=== PATIENT | female | born 1945 | race Caucasian/White ===

== ENCOUNTER 2020-05-21 08:27 | Emergency (ER) | payer MEDICARE, BC ==
[2020-05-21] MEDS ORDERED: Ondansetron 4 MG/2 ML SDV IVPUSH ONE (09:09)
[2020-05-21 09:15] LABS: ANION GAP 11.8 mEq/L (7-13)
[2020-05-21] MEDS ORDERED: Enalaprilat 1.25 MG/ML SDV IVPUSH ONE (09:29)
[2020-05-21] MEDS ORDERED: Sodium Chloride 0.9% 1,000 ML IV SCH (09:30)
--- NOTE | 2020-05-21 09:59 | EDM.PDOC ---
ED HPI GENERAL MEDICAL PROBLEM - General Chief Complaint: Gastrointestinal Problem Stated Complaint: THROWING UP SINCE YESTERDAY Time Seen by Provider: 05/21/20 09:00 Source of Information: Reports: Patient, RN History Limitations: Reports: No Limitations - History of Present Illness INITIAL COMMENTS - FREE TEXT/NARRATIVE: 74 year old female with a past medical history of diabetes and hypertension who presents to the ER with complaints of nausea and vomiting 1 day. Patient reports vomiting began yesterday afternoon after eating a piece of cheese cake. She has not been able to keep anything down afterwards. She was not able to take her medications yesterday night or this morning. She reports vomiting for the first few episodes and dry heaving for the rest. She reports inability to sleep last night due to dry heaving. She denies any recent travel, or eating a lot of home. She denies any fever, chills or sore throat but does admit to upper quadrant abdominal discomfort due to dry heaving. She denies any bloody vomitus. She has not been around anybody sick.She denies any upper respiratory, diarrhea, or urinary symptoms.. Onset: Sudden Onset Date: 05/20/20 Onset Time: 13:00 Duration: Day(s): Location: Reports: Abdomen Quality: Reports: Ache Severity: Moderate Worsens with: Reports: Eating Associated Symptoms: Reports: Nausea/Vomiting Epigastric Pain Score (Numeric/FACES): 6 - Related Data Allergies Allergy/AdvReac Type Severity Reaction Status Date / Time No Known Allergies Allergy Verified 05/21/20 08:36 Past Medical History HEENT History: Reports: Impaired Vision Cardiovascular History: Reports: High Cholesterol, Hypertension Genitourinary History: Reports: Other (See Below) Other Genitourinary History: Pt states that she follows Dr. Loaiza Endocrine/Metabolic History: Reports: Diabetes, Type II - Past Surgical History GI Surgical History: Reports: Appendectomy, Cholecystectomy Social & Family History - Tobacco Use Smoking Status *Q: Never Smoker Second Hand Smoke Exposure: No - Caffeine Use Caffeine Use: Reports: Tea - Recreational Drug Use Recreational Drug Use: No ED ROS GENERAL - Review of Systems Review Of Systems: Comprehensive ROS is negative, except as noted in HPI. ED EXAM, GI/ABD - Physical Exam Exam: See Below Exam Limited By: No Limitations General Appearance: Alert, Mild Distress Eyes: Bilateral: Normal Appearance Ears: Normal External Exam, Normal Canal, Hearing Grossly Normal, Normal TMs Nose: Normal Inspection, Normal Mucosa Throat/Mouth: Normal Inspection, Normal Lips, Normal Oropharynx, No Airway Compromise Head: Atraumatic Neck: Normal Inspection, Supple, Non-Tender Respiratory/Chest: No Respiratory Distress, Lungs Clear, Normal Breath Sounds, No Accessory Muscle Use, Chest Non-Tender Cardiovascular: Normal Peripheral Pulses, Regular Rate, Rhythm, Systolic Murmur GI/Abdominal Exam: Normal Bowel Sounds, Soft, Non-Tender (Female) Exam: Deferred Rectal (Female) Exam: Deferred Back Exam: Normal Inspection Extremities: Normal Inspection, Normal Range of Motion, Non-Tender, No Pedal Edema, Normal Capillary Refill Neurological: Alert, Oriented, Normal Cognition Psychiatric: Normal Affect, Normal Mood Skin Exam: Warm, Intact, Normal Color Lymphatic: No Adenopathy Course - Vital Signs Last Recorded V/S: Last Vital Signs Temp 97.6 F 05/21/20 08:32 Pulse 75 05/21/20 08:32 Resp 18 05/21/20 08:32 BP 187/72 H 05/21/20 09:49 Pulse Ox 96 05/21/20 08:32 - Orders/Labs/Meds Orders: Active Orders 24 hr Category Date Time Status CULTURE URINE [RM] Urgent Lab 05/21/20 08:47 Received Sodium Chloride 0.9% [Normal Saline] 1,000 ml Med 05/21/20 09:30 Active IV ASDIRECTED Medication Orders Sodium Chloride (Normal Saline) 1,000 mls @ 999 mls/hr IV ASDIRECTED KAT Last Admin: 05/21/20 09:29 Dose: 999 mls/hr Documented by: TERE Labs: Laboratory Tests 05/21/20 05/21/20 05/21/20 Range/Units 08:44 08:44 08:47 WBC 10.3 H (5.0-10.0) 10^3/uL RBC 4.53 (4.2-5.4) 10^6/uL Hgb 12.8 (12.0-16.0) g/dL Hct 37.7 (37.0-47.0) % MCV 83.2 (80-100) fL MCH 28.3 (27.0-34.0) pg MCHC 34.0 (33.0-35.0) g/dL Plt Count 275 (150-450) 10^3/uL Neut % (Auto) 82.8 H (42.2-75.2) % Lymph % (Auto) 11.4 L (20.5-50.1) % [place] % (Auto) 5.3 (2-8) % Eos % (Auto) 0.3 L (1.0-3.0) % Baso % (Auto) 0.2 (0.0-1.0) % Sodium 136 (136-145) mmol/L Potassium 3.8 (3.5-5.1) mmol/L Chloride 99 (98-107) mmol/L Carbon Dioxide 29 (21-32) mmol/L Anion Gap 11.8 (7-13) mEq/L BUN 39 H (7-18) mg/dL Creatinine 1.87 H (0.55-1.02) mg/dL Est Cr Clr Drug Dosing 20.87 mL/min Estimated GFR (MDRD) 26 BUN/Creatinine Ratio 20.9 (No establ ref range) Glucose 221 H (74-99) mg/dL Calcium 9.1 (8.5-10.1) mg/dL Total Bilirubin 0.5 (0.2-1.0) mg/dL AST 29 (15-37) U/L ALT 52 (14-59) U/L Alkaline Phosphatase 139 H (46-116) U/L Total Protein 8.2 (6.4-8.2) g/dL Albumin 2.9 L (3.4-5.0) g/dL Globulin 5.3 Albumin/Globulin Ratio 0.55 Urine Color Yellow (YELLOW) Urine Appearance Turbid (CLEAR) Urine pH 5.0 (5.0-9.0) Ur Specific Atkins 1.020 (1.005-1.030) Urine Protein >=300 H (NEGATIVE) Urine Glucose (UA) 250 H (NEGATIVE) Urine Ketones Negative (NEGATIVE) Urine Occult Blood Moderate H (NEGATIVE) Urine Nitrite Negative (NEGATIVE) Urine Bilirubin Negative (NEGATIVE) Urine Urobilinogen 0.2 (0.2-1.0) mg/dL Ur Leukocyte Esterase Trace H (NEGATIVE) Urine RBC 10-20 H /HPF Urine WBC 30-40 H (0-5/HPF) /HPF Ur Epithelial Cells Few (NOT SEEN) /HPF Urine Bacteria Many H (0-FEW/HPF) /HPF Urine Mucus Few H (NOT SEEN) /LPF Meds: Medications Generic Name Dose Route Start Last Admin Trade Name Fretheodore PRN Reason Stop Dose Admin Sodium Chloride 1,000 mls @ 999 mls/hr 05/21/20 09:30 05/21/20 09:29 Normal Saline IV 999 mls/hr ASDIRECTED KAT Administration Discontinued Medications Generic Name Dose Route Start Last Admin Trade Name Jeff PRN Reason Stop Dose Admin Enalaprilat 1.25 mg 05/21/20 09:29 05/21/20 09:49 Vasotec Iv IVPUSH 05/21/20 09:30 1.25 mg ONETIME ONE Administration Ondansetron HCl 4 mg 05/21/20 09:09 05/21/20 09:15 Zofran IVPUSH 05/21/20 09:10 4 mg ONETIME ONE Administration - Re-Assessments/Exams Free Text/Narrative Re-Assessment/Exam: [age] year old female raj presented to the ER with complaints of N/V/dry heaving x one day. She denies any CP, SOB, diaphoresis, palpitations, headaches, dizziness at this time. Her BP is noted to be elevated in the 200 as patient reports she has not taken her BP medications this morning. IV fluids administered with Vasotec and some improvement with BP down into the 160's. Zofran administered with resolution of nausea. Review lab, bedside EKG and urinalysis results with p atient and she was noted to have a mild UTI. RX for Keflex and Zofran send home with patient. Encouraged to push fluids and rest. Follow up with PCP. Departure - Departure Time of Disposition: 10:30 Disposition: Home, Self-Care 01 Condition: Good Clinical Impression: UTI, Urinary tract infectious disease, Vomiting - Discharge Information Instructions: Urinary Tract Infection, Adult, [id number], Nausea and Vo miting, Adult Additional Instructions: Encouraged patient to take medications as prescribed. Continue with home medications Push fluids and rest. Follow up with PCP. Symptoms to return to the ER reviewed with patient. Sepsis Event Note (ED) - Evaluation Sepsis Screening Result: No Definite Risk - Focused Exam Vital Signs: Vital Signs Temp Pulse Resp BP BP Pulse Ox 05/21/20 09:49 187/72 H 05/21/20 08:32 97.6 F 75 18 200/80 H 96 - My Orders Last 24 Hours: My Active Orders 05/21/20 08:47 CULTURE URINE [RM] Urgent 05/21/20 09:30 Sodium Chloride 0.9% [Normal Saline] 1,000 ml IV ASDIRECTED - Assessment/Plan Last 24 Hours: My Active Orders 05/21/20 08:47 CULTURE URINE [RM] Urgent 05/21/20 09:30 Sodium Chloride 0.9% [Normal Saline] 1,000 ml IV ASDIRECTED
== END 2020-05-21 10:44 | disposition home or self-care (01) ==
LOC: DL.ED 08:27
DX: N39.0 Urinary tract infection, site not specified (principal); R11.2 Nausea with vomiting, unspecified; I10 Essential (primary) hypertension; E11.9 Type 2 diabetes mellitus without complications; Z90.49 Acquired absence of other specified parts of digestive tract
CPT/HCPCS: 36415; 80053; 81001; 85025; 87086; 87088; 87186; 96361; 96374; 96375; 99284; J2405; J7030; 99283

== ENCOUNTER 2023-05-02 10:34 | Inpatient (IN) | payer MEDICARE, BC ==
[2023-05-03] MEDS ORDERED: Sennosides/Docusate Sodium 50-8.6 MG Tab PO PRN (08:31)
[2023-05-03] MEDS ORDERED: Acetaminophen/oxyCODONE 325-5 MG Tab PO PRN (08:31)
[2023-05-03] MEDS ORDERED: Polyethylene Glycol 3350 Powder 17 GM Packet PO PRN (08:31)
[2023-05-03] MEDS ORDERED: Sodium Chloride 0.9% 10 ML Syringe FLUSH PRN ×2 (08:31)
[2023-05-03] MEDS ORDERED: Glucagon,Human Recombinant 1 MG Vial IM PRN (08:31)
[2023-05-03] MEDS ORDERED: Acetaminophen 325 MG Tab PO PRN (08:31)
[2023-05-03] MEDS ORDERED: Magnesium Hydroxide 400 MG/5 ML Susp 30 ML Cup PO PRN (08:31)
[2023-05-03] MEDS ORDERED: Albuterol/Ipratropium 3.0-0.5 MG/3 ML Neb Soln NEB PRN (08:31)
[2023-05-03] MEDS ORDERED: Bumetanide 1 MG/4 ML MDV IVPUSH ONE (09:00)
[2023-05-03] MEDS ORDERED: Albumin Human 50 GM in Premix Bag 1 BAG IV ONE (09:00)
[2023-05-03] MEDS ORDERED: Metolazone 2.5 MG Tab PO SCH (09:00)
[2023-05-03] MEDS: Aspirin 81 MG Tab.EC PO SCH (11:12)
[2023-05-03] MEDS: Cholecalciferol (Vitamin D3) 25 MCG Tab PO SCH (11:12)
[2023-05-03] MEDS: Calcitriol 0.25 MCG Cap PO SCH (11:12)
[2023-05-03] MEDS: Insulin Lispro 100 Units/ML 3 ML Vial SUBCUT SCH ×2 (11:38→17:54)
[2023-05-03] MEDS ORDERED: Sodium Chloride 0.9% 1,000 ML IV SCH (20:00)
[2023-05-03] MEDS: Meropenem 500 MG SDV IVPUSH SCH (20:56)
[2023-05-03] MEDS ORDERED: Pravastatin 20 MG Tab PO SCH (21:00)
[2023-05-03] MEDS: Isosorbide Mononitrate 60 MG Tab.ER PO SCH (21:16)
[2023-05-03] MEDS: hydrALAZINE 25 MG Tab PO SCH (21:17)
[2023-05-04] MEDS: hydrALAZINE 25 MG Tab PO SCH ×2 (07:19→08:31)
[2023-05-04] MEDS ORDERED: Ondansetron 4 MG/2 ML SDV IVPUSH PRN (07:37)
[2023-05-04] MEDS ORDERED: Ondansetron 4 MG/2 ML SDV ONE (07:38)
[2023-05-04] MEDS: Insulin Lispro 100 Units/ML 3 ML Vial SUBCUT SCH ×3 (08:00→16:57)
[2023-05-04] MEDS: Calcitriol 0.25 MCG Cap PO SCH (08:50)
[2023-05-04] MEDS: Cholecalciferol (Vitamin D3) 25 MCG Tab PO SCH (08:51)
[2023-05-04] MEDS: Aspirin 81 MG Tab.EC PO SCH (08:52)
[2023-05-04] MEDS: Isosorbide Mononitrate 60 MG Tab.ER PO SCH (08:52)
[2023-05-04 08:55] LABS: A/G RATIO 0.9; ALBUMIN 3.6 g/dL (3.4-5.0); ANION GAP 13.5 mEq/L (7-13); BILIRUBIN TOTAL 0.4 mg/dL (0.2-1.0); BUN/CREATININE RATIO 20.1 (No establ ref range); CALCIUM 8.4 mg/dL (8.5-10.1); CREATININE 3.04 mg/dL (0.55-1.02); EST CRCL DRUG DOSING (CG) 12.26 mL/min; MAGNESIUM 2.5 mg/dL (1.8-2.4); POTASSIUM,K 5.5 mmol/L (3.5-5.1); PROTEIN TOTAL,TP 7.4 g/dL (6.4-8.2)
[2023-05-04] MEDS ORDERED: Insulin Glarg,Human.Rec.Analog 100 Unit/ML SUBCUT SCH (09:00)
[2023-05-04] MEDS ORDERED: Saccharomyces Boulardii (Probiotic) 250 MG Cap PO SCH (09:00)
[2023-05-04] MEDS ORDERED: Metolazone 2.5 MG Tab PO SCH (09:00)
[2023-05-04] MEDS ORDERED: Azithromycin 500 MG in Sodium Chloride 0.9% 250 ML IV SCH (09:00)
[2023-05-04] MEDS ORDERED: cloNIDine 0.1 MG Tab PO ONE (10:00)
[2023-05-04] MEDS: Meropenem 500 MG SDV IVPUSH SCH (10:03)
[2023-05-04] MEDS ORDERED: Sodium Zirconium Cyclosilicate 5 GM Packet PO STA (10:30)
[2023-05-04] MEDS ORDERED: Bumetanide 1 MG/4 ML MDV IVPUSH ONE (16:06)
[2023-05-04 16:42] LABS: ANION GAP 11.1 mEq/L (7-13); CALCIUM 8.3 mg/dL (8.5-10.1); CREATININE 2.95 mg/dL (0.55-1.02); EST CRCL DRUG DOSING (CG) 12.63 mL/min; POTASSIUM,K 5.1 mmol/L (3.5-5.1)
[2023-05-04] MEDS ORDERED: Heparin Sodium 5,000 Units/ML Vial IVPUSH ONE (16:44)
[2023-05-04] MEDS ORDERED: Heparin Sodium/0.45% NaCl 25,000 UNITS/500 ML BAG IV SCH (16:45)
[2023-05-04] MEDS ORDERED: cloNIDine 0.1 MG Tab PO SCH (21:00)
[2023-05-05] MEDS ORDERED: Sodium Zirconium Cyclosilicate 10 GM Packet PO SCH (09:00)
== END 2023-05-04 17:14 | disposition critical access hospital (66) | DRG 637 ==
LOC: DL.MS 05-03 08:48
PROVIDERS: ADMIT Internal Medicine; ATTEND Internal Medicine
PROC: 5A09357 Assistance with Respiratory Ventilation, Less than 24 Consecutive Hours, Continuous Positive Airway Pressure (ICD-10-PCS; principal; 2023-05-03)
DX: E11.649 Type 2 diabetes mellitus with hypoglycemia without coma (principal); I21.4 Non-ST elevation (NSTEMI) myocardial infarction; N39.0 Urinary tract infection, site not specified; N17.9 Acute kidney failure, unspecified; N18.4 Chronic kidney disease, stage 4 (severe); I12.9 Hypertensive chronic kidney disease with stage 1 through stage 4 chronic kidney disease, or unspecified chronic kidney disease; E11.22 Type 2 diabetes mellitus with diabetic chronic kidney disease; E78.5 Hyperlipidemia, unspecified; B96.89 Other specified bacterial agents as the cause of diseases classified elsewhere; E66.9 Obesity, unspecified; G47.33 Obstructive sleep apnea (adult) (pediatric); E55.9 Vitamin D deficiency, unspecified; D50.9 Iron deficiency anemia, unspecified; E87.5 Hyperkalemia; D63.1 Anemia in chronic kidney disease; T38.3X5A Adverse effect of insulin and oral hypoglycemic [antidiabetic] drugs, initial encounter; R09.02 Hypoxemia; Z79.4 Long term (current) use of insulin; Z98.890 Other specified postprocedural states; Z98.49 Cataract extraction status, unspecified eye; Z79.82 Long term (current) use of aspirin; Z79.899 Other long term (current) drug therapy; Z68.39 Body mass index [BMI] 39.0-39.9, adult; Z99.81 Dependence on supplemental oxygen; Z90.49 Acquired absence of other specified parts of digestive tract
CPT/HCPCS: 36415; 71045; 80048; 80053; 82550; 82947; 83735; 84484; 85379; 85730; 93005; 93970; 94010; 94660; 97161-GP; 97165-GO; A9270-GY; J0456; J2185; J2405; J3490; J7030; J7050; P9047

== ENCOUNTER 2023-05-04 17:15 | Inpatient (IN) | payer MEDICARE, BC ==
[2023-05-04] MEDS ORDERED: Heparin Sodium/0.45% NaCl 25,000 UNITS/500 ML BAG IV SCH (17:17)
[2023-05-04] MEDS ORDERED: Heparin Sodium 5,000 Units/ML Vial IVPUSH ONE ×2 (17:17→17:30)
[2023-05-04] MEDS: Heparin Sodium/0.45% NaCl 25,000 UNITS/500 ML BAG IV SCH (17:20)
[2023-05-04] MEDS ORDERED: Sodium Chloride 0.9% 10 ML Syringe FLUSH PRN ×2 (17:30→17:31)
[2023-05-04] MEDS ORDERED: Polyethylene Glycol 3350 Powder 17 GM Packet PO PRN (17:31)
[2023-05-04] MEDS ORDERED: Acetaminophen/oxyCODONE 325-5 MG Tab PO PRN (17:31)
[2023-05-04] MEDS ORDERED: HYDROmorphone 0.5 MG/0.5 ML Syringe IVPUSH PRN (17:31)
[2023-05-04] MEDS ORDERED: Acetaminophen 325 MG Tab PO PRN (17:31)
[2023-05-04] MEDS ORDERED: Sennosides/Docusate Sodium 50-8.6 MG Tab PO PRN (17:31)
[2023-05-04] MEDS ORDERED: Magnesium Hydroxide 400 MG/5 ML Susp 30 ML Cup PO PRN (17:31)
[2023-05-04] MEDS ORDERED: Aspirin 325 MG Tab.EC PO ONE (17:39)
[2023-05-04] MEDS ORDERED: 50% Dextrose in Water 50 ML Syringe IVPUSH PRN (17:43)
[2023-05-04] MEDS ORDERED: Glucagon,Human Recombinant 1 MG Vial IM PRN (17:43)
[2023-05-04] MEDS ORDERED: Aspirin 81 MG Tab.Chew PO ONE (17:44)
[2023-05-04] MEDS: Carvedilol 6.25 MG Tab PO SCH (18:20)
[2023-05-04] MEDS ORDERED: Insulin Glarg,Human.Rec.Analog 100 Unit/ML SUBCUT SCH (21:00)
[2023-05-04] MEDS: Pravastatin 20 MG Tab PO SCH (21:09)
[2023-05-04] MEDS: hydrALAZINE 25 MG Tab PO SCH (21:09)
[2023-05-04] MEDS: Isosorbide Mononitrate 60 MG Tab.ER PO SCH (21:09)
[2023-05-04] MEDS: Insulin Glarg,Human.Rec.Analog 100 Unit/ML SUBCUT SCH (21:10)
[2023-05-04] MEDS: Sodium Chloride 0.9% 10 ML Syringe FLUSH SCH (21:10)
[2023-05-05] MEDS ORDERED: Heparin Sodium 5,000 Units/ML Vial IVPUSH ONE ×2 (00:09→08:03)
[2023-05-05] MEDS: Pantoprazole 40 MG Tab.CR PO SCH ×2 (06:05→16:14)
[2023-05-05 06:23] LABS: BASOPHILS PERCENT AUTO 0.5 % (0.0-1.0); EOSINOPHILS PERCENT AUTO 6.4 % (1.0-3.0); HEMATOCRIT 31.2 % (37.0-47.0); HEMOGLOBIN 9.2 g/dL (12.0-16.0); LYMPHOCYTES PERCENT AUTO 13.9 % (20.5-50.1); MEAN CORPUSCULAR HEMOGLOBIN 28.6 pg (27.0-34.0); MEAN CORPUSCULAR HGB CONC 29.5 g/dL (33.0-35.0); MEAN CORPUSCULAR VOLUME 96.9 fL (80-100); MONOCYTES PERCENT AUTO 10.7 % (2-8); NEUTROPHILS PERCENT AUTO 68.5 % (42.2-75.2); PLATELET COUNT,PLT 146 10^3/uL (150-450); RED BLOOD CELL COUNT 3.22 10^6/uL (4.2-5.4); WHITE BLOOD CELL COUNT,WBC 6.6 10^3/uL (5.0-10.0)
[2023-05-05 06:46] LABS: A/G RATIO 0.89; ALBUMIN 3.1 g/dL (3.4-5.0); ANION GAP 10.2 mEq/L (7-13); BILIRUBIN TOTAL 0.3 mg/dL (0.2-1.0); BUN/CREATININE RATIO 22.4 (No establ ref range); CALCIUM 8.3 mg/dL (8.5-10.1); CREATININE 3.12 mg/dL (0.55-1.02); EST CRCL DRUG DOSING (CG) 12.49 mL/min; MAGNESIUM 2.5 mg/dL (1.8-2.4); POTASSIUM,K 5.2 mmol/L (3.5-5.1); PROTEIN TOTAL,TP 6.6 g/dL (6.4-8.2)
[2023-05-05] MEDS: Aspirin 81 MG Tab.Chew PO SCH (08:17)
[2023-05-05] MEDS: hydrALAZINE 25 MG Tab PO SCH ×2 (08:17→22:10)
[2023-05-05] MEDS: Isosorbide Mononitrate 60 MG Tab.ER PO SCH ×2 (08:17→22:10)
[2023-05-05] MEDS: Calcitriol 0.25 MCG Cap PO SCH (08:18)
[2023-05-05] MEDS: Carvedilol 6.25 MG Tab PO SCH ×2 (08:18→17:04)
[2023-05-05] MEDS: Insulin Glarg,Human.Rec.Analog 100 Unit/ML SUBCUT SCH ×2 (08:18→22:22)
[2023-05-05] MEDS: Insulin Lispro 100 Units/ML 3 ML Vial SUBCUT SCH ×3 (08:24→17:02)
[2023-05-05] MEDS: Sodium Chloride 0.9% 10 ML Syringe FLUSH SCH ×2 (08:32→22:18)
[2023-05-05] MEDS ORDERED: Sodium Polystyrene Sulfonate 15 GM/60 ML Susp 60 ML Bot PO ONE ×2 (10:29→18:00)
[2023-05-05] MEDS ORDERED: Caffeine Citrated (ORAL SOLUTION) 60 MG/3 ML PO ONE (10:30)
[2023-05-05] MEDS ORDERED: Dexamethasone 4 MG/ML SDV IVPUSH ONE (13:05)
[2023-05-05] MEDS: Albuterol/Ipratropium 3.0-0.5 MG/3 ML Neb Soln NEB PRN (13:06)
[2023-05-05] MEDS ORDERED: Famotidine 20 MG/2 ML SDV IVPUSH ONE (13:11)
[2023-05-05] MEDS ORDERED: guaiFENesin/Dextromethorphan 100-10 MG/5 ML Soln 5 ML Cup PO PRN (13:16)
[2023-05-05] MEDS: Piperacillin/Tazobactam 2.25 GM in Sodium Chloride 0.9% 50 ML IV SCH ×2 (14:03→22:15)
[2023-05-05] MEDS: Heparin Sodium/0.45% NaCl 25,000 UNITS/500 ML BAG IV SCH (15:17)
[2023-05-05] MEDS ORDERED: Piperacillin/Tazobactam 3.375 GM in Sodium Chloride 0.9% 100 ML IV SCH (18:00)
[2023-05-05] MEDS: Saccharomyces Boulardii (Probiotic) 250 MG Cap PO SCH (22:10)
[2023-05-05] MEDS: Pravastatin 20 MG Tab PO SCH (22:10)
[2023-05-05] MEDS: guaiFENesin 600 MG Tab.ER PO SCH (22:11)
[2023-05-06] MEDS: Pantoprazole 40 MG Tab.CR PO SCH ×2 (05:30→17:36)
[2023-05-06] MEDS: Piperacillin/Tazobactam 2.25 GM in Sodium Chloride 0.9% 50 ML IV SCH ×3 (05:34→21:12)
[2023-05-06 06:03] LABS: BASOPHILS PERCENT AUTO 0.3 % (0.0-1.0); EOSINOPHILS PERCENT AUTO 0.7 % (1.0-3.0); HEMATOCRIT 30.6 % (37.0-47.0); HEMOGLOBIN 9.1 g/dL (12.0-16.0); LYMPHOCYTES PERCENT AUTO 13.4 % (20.5-50.1); MEAN CORPUSCULAR HEMOGLOBIN 28.2 pg (27.0-34.0); MEAN CORPUSCULAR HGB CONC 29.7 g/dL (33.0-35.0); MEAN CORPUSCULAR VOLUME 94.7 fL (80-100); MONOCYTES PERCENT AUTO 10.7 % (2-8); NEUTROPHILS PERCENT AUTO 74.9 % (42.2-75.2); PLATELET COUNT,PLT 143 10^3/uL (150-450); RED BLOOD CELL COUNT 3.23 10^6/uL (4.2-5.4)
[2023-05-06 06:23] LABS: ALBUMIN 3.2 g/dL (3.4-5.0); ANION GAP 9.4 mEq/L (7-13); BILIRUBIN TOTAL 0.3 mg/dL (0.2-1.0); BUN/CREATININE RATIO 23.7 (No establ ref range); CALCIUM 8.2 mg/dL (8.5-10.1); CREATININE 2.95 mg/dL (0.55-1.02); EST CRCL DRUG DOSING (CG) 13.21 mL/min; MAGNESIUM 2.5 mg/dL (1.8-2.4); POTASSIUM,K 4.4 mmol/L (3.5-5.1); PROTEIN TOTAL,TP 6.8 g/dL (6.4-8.2)
[2023-05-06 06:26] LABS: A/G RATIO 0.89
[2023-05-06] MEDS: Albuterol/Ipratropium 3.0-0.5 MG/3 ML Neb Soln NEB PRN (07:45)
[2023-05-06] MEDS: Aspirin 81 MG Tab.Chew PO SCH (07:47)
[2023-05-06] MEDS: Insulin Lispro 100 Units/ML 3 ML Vial SUBCUT SCH ×3 (07:48→17:53)
[2023-05-06] MEDS: Carvedilol 6.25 MG Tab PO SCH ×2 (07:48→17:36)
[2023-05-06] MEDS: hydrALAZINE 25 MG Tab PO SCH ×2 (08:02→21:11)
[2023-05-06] MEDS: Isosorbide Mononitrate 60 MG Tab.ER PO SCH ×2 (08:02→21:11)
[2023-05-06] MEDS: Insulin Glarg,Human.Rec.Analog 100 Unit/ML SUBCUT SCH ×2 (08:02→21:12)
[2023-05-06] MEDS: Calcitriol 0.25 MCG Cap PO SCH (08:02)
[2023-05-06] MEDS: Saccharomyces Boulardii (Probiotic) 250 MG Cap PO SCH ×2 (08:02→21:11)
[2023-05-06] MEDS: guaiFENesin 600 MG Tab.ER PO SCH ×2 (08:03→21:11)
[2023-05-06] MEDS: Sodium Chloride 0.9% 10 ML Syringe FLUSH SCH ×2 (08:03→21:13)
[2023-05-06] MEDS: Ondansetron 4 MG/2 ML SDV IVPUSH PRN (08:15)
[2023-05-06] MEDS ORDERED: Witch Hazel Medicated Pads 100/Jar TOP PRN (09:15)
[2023-05-06] MEDS ORDERED: Caffeine Citrated (ORAL SOLUTION) 60 MG/3 ML PO SCH (09:30)
[2023-05-06] MEDS ORDERED: Caffeine Citrated (ORAL SOLUTION) 60 MG/3 ML ONE (10:55)
[2023-05-06] MEDS: Pravastatin 20 MG Tab PO SCH (21:11)
[2023-05-07] MEDS: Pantoprazole 40 MG Tab.CR PO SCH ×2 (05:41→17:07)
[2023-05-07] MEDS: Piperacillin/Tazobactam 2.25 GM in Sodium Chloride 0.9% 50 ML IV SCH ×3 (05:41→21:08)
[2023-05-07 05:42] LABS: BASOPHILS PERCENT AUTO 0.4 % (0.0-1.0); EOSINOPHILS PERCENT AUTO 4.3 % (1.0-3.0); HEMATOCRIT 28.7 % (37.0-47.0); HEMOGLOBIN 8.5 g/dL (12.0-16.0); LYMPHOCYTES PERCENT AUTO 13.2 % (20.5-50.1); MEAN CORPUSCULAR HEMOGLOBIN 28.5 pg (27.0-34.0); MEAN CORPUSCULAR HGB CONC 29.6 g/dL (33.0-35.0); MEAN CORPUSCULAR VOLUME 96.3 fL (80-100); MONOCYTES PERCENT AUTO 8.4 % (2-8); NEUTROPHILS PERCENT AUTO 73.7 % (42.2-75.2); PLATELET COUNT,PLT 138 10^3/uL (150-450); RED BLOOD CELL COUNT 2.98 10^6/uL (4.2-5.4); WHITE BLOOD CELL COUNT,WBC 7.2 10^3/uL (5.0-10.0)
[2023-05-07 06:07] LABS: ANION GAP 11.3 mEq/L (7-13); BILIRUBIN TOTAL 0.3 mg/dL (0.2-1.0); BUN/CREATININE RATIO 21.3 (No establ ref range); CREATININE 3.52 mg/dL (0.55-1.02); EST CRCL DRUG DOSING (CG) 11.07 mL/min; MAGNESIUM 2.5 mg/dL (1.8-2.4); POTASSIUM,K 4.3 mmol/L (3.5-5.1); PROTEIN TOTAL,TP 6.5 g/dL (6.4-8.2)
[2023-05-07 06:08] LABS: A/G RATIO 0.86
[2023-05-07] MEDS ORDERED: Lactated Ringers 1,000 ML IV SCH (07:00)
[2023-05-07] MEDS: hydrALAZINE 25 MG Tab PO SCH ×2 (08:12→21:05)
[2023-05-07] MEDS: Carvedilol 6.25 MG Tab PO SCH ×2 (08:12→17:07)
[2023-05-07] MEDS: Insulin Lispro 100 Units/ML 3 ML Vial SUBCUT SCH ×3 (08:13→17:07)
[2023-05-07] MEDS: Aspirin 81 MG Tab.Chew PO SCH (08:13)
[2023-05-07] MEDS: Calcitriol 0.25 MCG Cap PO SCH (08:13)
[2023-05-07] MEDS: guaiFENesin 600 MG Tab.ER PO SCH ×2 (08:13→21:05)
[2023-05-07] MEDS: Isosorbide Mononitrate 60 MG Tab.ER PO SCH ×2 (08:13→21:05)
[2023-05-07] MEDS: Saccharomyces Boulardii (Probiotic) 250 MG Cap PO SCH ×2 (08:13→21:05)
[2023-05-07] MEDS: Insulin Glarg,Human.Rec.Analog 100 Unit/ML SUBCUT SCH ×2 (08:19→21:29)
[2023-05-07] MEDS: Sodium Chloride 0.9% 10 ML Syringe FLUSH SCH ×2 (08:20→21:28)
[2023-05-07] MEDS ORDERED: Hydrochlorothiazide 25 MG Tab PO SCH ×2 (09:00)
[2023-05-07] MEDS: Pravastatin 20 MG Tab PO SCH (21:05)
[2023-05-08] MEDS: Pantoprazole 40 MG Tab.CR PO SCH ×2 (06:15→15:28)
[2023-05-08] MEDS: Piperacillin/Tazobactam 2.25 GM in Sodium Chloride 0.9% 50 ML IV SCH ×3 (06:19→22:44)
[2023-05-08 06:28] LABS: BASOPHILS PERCENT AUTO 0.3 % (0.0-1.0); EOSINOPHILS PERCENT AUTO 4.6 % (1.0-3.0); HEMATOCRIT 28.3 % (37.0-47.0); HEMOGLOBIN 8.4 g/dL (12.0-16.0); LYMPHOCYTES PERCENT AUTO 19.5 % (20.5-50.1); MEAN CORPUSCULAR HEMOGLOBIN 28.5 pg (27.0-34.0); MEAN CORPUSCULAR HGB CONC 29.7 g/dL (33.0-35.0); MEAN CORPUSCULAR VOLUME 95.9 fL (80-100); MONOCYTES PERCENT AUTO 8.1 % (2-8); NEUTROPHILS PERCENT AUTO 67.5 % (42.2-75.2); PLATELET COUNT,PLT 137 10^3/uL (150-450); RED BLOOD CELL COUNT 2.95 10^6/uL (4.2-5.4); WHITE BLOOD CELL COUNT,WBC 6.3 10^3/uL (5.0-10.0)
[2023-05-08 06:47] LABS: ANION GAP 13.3 mEq/L (7-13); BILIRUBIN TOTAL 0.4 mg/dL (0.2-1.0); BUN/CREATININE RATIO 21.7 (No establ ref range); CALCIUM 8.1 mg/dL (8.5-10.1); CREATININE 3.78 mg/dL (0.55-1.02); EST CRCL DRUG DOSING (CG) 10.31 mL/min; MAGNESIUM 2.4 mg/dL (1.8-2.4); POTASSIUM,K 4.3 mmol/L (3.5-5.1); PROTEIN TOTAL,TP 6.2 g/dL (6.4-8.2)
[2023-05-08 06:50] LABS: A/G RATIO 0.94
[2023-05-08] MEDS: Bumetanide 1 MG/4 ML MDV IVPUSH ONE ×2 (08:30→08:53)
[2023-05-08] MEDS: Insulin Lispro 100 Units/ML 3 ML Vial SUBCUT SCH ×3 (08:53→19:02)
[2023-05-08] MEDS ORDERED: Insulin Glarg,Human.Rec.Analog 100 Unit/ML SUBCUT SCH (09:00)
[2023-05-08] MEDS: Ondansetron 4 MG/2 ML SDV IVPUSH PRN (09:15)
[2023-05-08] MEDS: Aspirin 81 MG Tab.Chew PO SCH (09:51)
[2023-05-08] MEDS: Saccharomyces Boulardii (Probiotic) 250 MG Cap PO SCH ×2 (09:52→20:17)
[2023-05-08] MEDS: Calcitriol 0.25 MCG Cap PO SCH (09:52)
[2023-05-08] MEDS: guaiFENesin 600 MG Tab.ER PO SCH ×2 (09:52→20:18)
[2023-05-08] MEDS: hydrALAZINE 25 MG Tab PO SCH ×2 (09:52→20:17)
[2023-05-08] MEDS: Isosorbide Mononitrate 60 MG Tab.ER PO SCH ×2 (09:52→20:18)
[2023-05-08] MEDS: Carvedilol 6.25 MG Tab PO SCH ×2 (09:53→19:06)
[2023-05-08] MEDS: Sodium Chloride 0.9% 10 ML Syringe FLUSH SCH ×2 (09:55→22:45)
[2023-05-08] MEDS ORDERED: Bumetanide 1 MG/4 ML MDV IVPUSH ONE (10:30)
[2023-05-08 18:21] LABS: ALBUMIN 3.2 g/dL (3.4-5.0); ANION GAP 14.4 mEq/L (7-13); BILIRUBIN TOTAL 0.4 mg/dL (0.2-1.0); CALCIUM 8.2 mg/dL (8.5-10.1); CREATININE 3.83 mg/dL (0.55-1.02); EST CRCL DRUG DOSING (CG) 10.18 mL/min; POTASSIUM,K 4.4 mmol/L (3.5-5.1); PROTEIN TOTAL,TP 6.7 g/dL (6.4-8.2)
[2023-05-08 18:25] LABS: A/G RATIO 0.91
[2023-05-08] MEDS: Pravastatin 20 MG Tab PO SCH (20:17)
[2023-05-08] MEDS: Insulin Glarg,Human.Rec.Analog 100 Unit/ML SUBCUT SCH (20:18)
[2023-05-09] MEDS: Piperacillin/Tazobactam 2.25 GM in Sodium Chloride 0.9% 50 ML IV SCH ×3 (05:10→21:38)
[2023-05-09] MEDS: Pantoprazole 40 MG Tab.CR PO SCH ×2 (05:10→16:36)
[2023-05-09 06:14] LABS: BASOPHILS PERCENT AUTO 0.2 % (0.0-1.0); EOSINOPHILS PERCENT AUTO 2.6 % (1.0-3.0); HEMATOCRIT 29.3 % (37.0-47.0); HEMOGLOBIN 8.7 g/dL (12.0-16.0); LYMPHOCYTES PERCENT AUTO 9.3 % (20.5-50.1); MEAN CORPUSCULAR HEMOGLOBIN 28.4 pg (27.0-34.0); MEAN CORPUSCULAR HGB CONC 29.7 g/dL (33.0-35.0); MEAN CORPUSCULAR VOLUME 95.8 fL (80-100); MONOCYTES PERCENT AUTO 6.6 % (2-8); NEUTROPHILS PERCENT AUTO 81.3 % (42.2-75.2); PLATELET COUNT,PLT 138 10^3/uL (150-450); RED BLOOD CELL COUNT 3.06 10^6/uL (4.2-5.4); WHITE BLOOD CELL COUNT,WBC 9.2 10^3/uL (5.0-10.0)
[2023-05-09 06:42] LABS: ANION GAP 13.6 mEq/L (7-13); C-REACTIVE PROTEIN 1.1 mg/dL (0.0-0.9); CALCIUM 7.9 mg/dL (8.5-10.1); CREATININE 4.17 mg/dL (0.55-1.02); EST CRCL DRUG DOSING (CG) 9.35 mL/min; MAGNESIUM 2.5 mg/dL (1.8-2.4); POTASSIUM,K 4.6 mmol/L (3.5-5.1)
[2023-05-09] MEDS: Aspirin 81 MG Tab.Chew PO SCH (08:32)
[2023-05-09] MEDS: Carvedilol 6.25 MG Tab PO SCH (08:32)
[2023-05-09] MEDS: hydrALAZINE 25 MG Tab PO SCH (08:32)
[2023-05-09] MEDS: Calcitriol 0.25 MCG Cap PO SCH (08:33)
[2023-05-09] MEDS: Isosorbide Mononitrate 60 MG Tab.ER PO SCH (08:33)
[2023-05-09] MEDS: Saccharomyces Boulardii (Probiotic) 250 MG Cap PO SCH ×2 (08:33→21:37)
[2023-05-09] MEDS: guaiFENesin 600 MG Tab.ER PO SCH ×2 (08:33→21:37)
[2023-05-09] MEDS: Insulin Lispro 100 Units/ML 3 ML Vial SUBCUT SCH ×3 (08:40→17:20)
[2023-05-09] MEDS: Insulin Glarg,Human.Rec.Analog 100 Unit/ML SUBCUT SCH ×2 (08:41→21:38)
[2023-05-09] MEDS: Sodium Chloride 0.9% 10 ML Syringe FLUSH SCH ×2 (08:44→21:50)
[2023-05-09] MEDS ORDERED: Lactated Ringers 1,000 ML IV SCH (11:15)
[2023-05-09] MEDS: Heparin Sodium 5,000 Units/ML Vial SUBCUT SCH ×2 (14:18→21:38)
[2023-05-09] MEDS ORDERED: Carvedilol 6.25 MG Tab PO SCH (18:00)
[2023-05-09] MEDS: Pravastatin 20 MG Tab PO SCH (21:37)
[2023-05-10 02:11] LABS: APPEARANCE,URINE CLEAR (CLEAR); BILIRUBIN,URINE NEGATIVE (NEGATIVE); COLOR,URINE YELLOW (YELLOW); GLUCOSE,URINE NEGATIVE (NEGATIVE); KETONES,URINE NEGATIVE (NEGATIVE); LEUKOCYTE ESTERASE,URINE NEGATIVE (NEGATIVE); NITRITE,URINE NEGATIVE (NEGATIVE); OCCULT BLOOD,URINE NEGATIVE (NEGATIVE); PH,URINE 5.5 (5.0-9.0); PROTEIN,URINE 100 (NEGATIVE); UROBILINOGEN,URINE 0.2 mg/dL (0.2-1.0)
[2023-05-10 02:24] LABS: BACTERIA,URINE RARE /HPF (0-FEW/HPF); EPITHELIAL CELLS,URINE FEW /HPF (NOT SEEN); MUCUS,URINE RARE /LPF (NOT SEEN); RBC,URINE NOT SEEN /HPF (0-5); WBC,URINE NOT SEEN /HPF (0-5/HPF)
[2023-05-10] MEDS: Heparin Sodium 5,000 Units/ML Vial SUBCUT SCH (06:05)
[2023-05-10 06:06] LABS: BASOPHILS PERCENT AUTO 0.1 % (0.0-1.0); EOSINOPHILS PERCENT AUTO 4.4 % (1.0-3.0); HEMATOCRIT 28.9 % (37.0-47.0); HEMOGLOBIN 8.8 g/dL (12.0-16.0); LYMPHOCYTES PERCENT AUTO 10.3 % (20.5-50.1); MEAN CORPUSCULAR HEMOGLOBIN 28.7 pg (27.0-34.0); MEAN CORPUSCULAR HGB CONC 30.4 g/dL (33.0-35.0); MEAN CORPUSCULAR VOLUME 94.1 fL (80-100); MONOCYTES PERCENT AUTO 6.1 % (2-8); NEUTROPHILS PERCENT AUTO 79.1 % (42.2-75.2); PLATELET COUNT,PLT 125 10^3/uL (150-450); RED BLOOD CELL COUNT 3.07 10^6/uL (4.2-5.4); WHITE BLOOD CELL COUNT,WBC 8.2 10^3/uL (5.0-10.0)
[2023-05-10] MEDS: Piperacillin/Tazobactam 2.25 GM in Sodium Chloride 0.9% 50 ML IV SCH ×2 (06:13→13:46)
[2023-05-10] MEDS: Pantoprazole 40 MG Tab.CR PO SCH ×2 (06:13→15:34)
[2023-05-10 06:21] LABS: ANION GAP 11.7 mEq/L (7-13); CREATININE 4.34 mg/dL (0.55-1.02); EST CRCL DRUG DOSING (CG) 8.98 mL/min; MAGNESIUM 2.5 mg/dL (1.8-2.4); POTASSIUM,K 4.7 mmol/L (3.5-5.1)
[2023-05-10] MEDS ORDERED: Carvedilol 6.25 MG Tab PO SCH (08:00)
[2023-05-10] MEDS: Calcitriol 0.25 MCG Cap PO SCH (09:28)
[2023-05-10] MEDS: guaiFENesin 600 MG Tab.ER PO SCH (09:28)
[2023-05-10] MEDS: Aspirin 81 MG Tab.Chew PO SCH (09:28)
[2023-05-10] MEDS: Saccharomyces Boulardii (Probiotic) 250 MG Cap PO SCH (09:28)
[2023-05-10] MEDS: Insulin Glarg,Human.Rec.Analog 100 Unit/ML SUBCUT SCH (09:31)
[2023-05-10] MEDS: Ondansetron 4 MG/2 ML SDV IVPUSH PRN (09:33)
[2023-05-10] MEDS: Insulin Lispro 100 Units/ML 3 ML Vial SUBCUT SCH ×2 (09:33→12:18)
[2023-05-10] MEDS: Sodium Chloride 0.9% 10 ML Syringe FLUSH SCH (09:42)
== END 2023-05-10 17:15 | DRG 280 ==
LOC: DL.MS 17:15
PROVIDERS: ADMIT Internal Medicine; ATTEND Internal Medicine
PROC: 5A09457 Assistance with Respiratory Ventilation, 24-96 Consecutive Hours, Continuous Positive Airway Pressure (ICD-10-PCS; principal; 2023-05-04)
DX: I21.4 Non-ST elevation (NSTEMI) myocardial infarction (principal); G93.41 Metabolic encephalopathy; J96.01 Acute respiratory failure with hypoxia; N17.0 Acute kidney failure with tubular necrosis; N39.0 Urinary tract infection, site not specified; Z68.41 Body mass index [BMI] 40.0-44.9, adult; N18.4 Chronic kidney disease, stage 4 (severe); E11.649 Type 2 diabetes mellitus with hypoglycemia without coma; E11.22 Type 2 diabetes mellitus with diabetic chronic kidney disease; M89.8X9 Other specified disorders of bone, unspecified site; E66.9 Obesity, unspecified; E55.9 Vitamin D deficiency, unspecified; I12.9 Hypertensive chronic kidney disease with stage 1 through stage 4 chronic kidney disease, or unspecified chronic kidney disease; E78.5 Hyperlipidemia, unspecified; E87.70 Fluid overload, unspecified; G47.33 Obstructive sleep apnea (adult) (pediatric); B95.2 Enterococcus as the cause of diseases classified elsewhere; E11.65 Type 2 diabetes mellitus with hyperglycemia; Z79.82 Long term (current) use of aspirin; Z79.4 Long term (current) use of insulin; Z98.890 Other specified postprocedural states; Z79.899 Other long term (current) drug therapy; Z90.49 Acquired absence of other specified parts of digestive tract
CPT/HCPCS: 36415; 71045; 80048; 80053; 80061; 81001; 82947; 83735; 83880; 84484; 85025; 85730; 86140; 94060; 94660; 94762; 97161-GP; 97165-GO; 97530-GO; 97530-GP; 99223; 99233; 99238; A9270-GY; J0706; J1100; J1644; J1815-GY; J2405; J2543; J3490; J7120; J7620-GY

== ENCOUNTER 2023-06-12 10:56 | Inpatient (IN) | payer MEDICARE, BC ==
[2023-06-12] MEDS ORDERED: Sodium Chloride 0.9% 10 ML Syringe FLUSH PRN (11:13)
[2023-06-12] MEDS ORDERED: Ondansetron 4 MG/2 ML SDV IV ONE (11:13)
[2023-06-12 11:35] LABS: KETONES,BLOOD NEGATIVE
[2023-06-12 11:41] LABS: B-TYPE NATRIURETIC PEPTIDE,BNP 242 pg/ml (0-100)
[2023-06-12 11:44] LABS: HEMOGLOBIN A1C 8.3 % (<5.7)
[2023-06-12 11:48] LABS: LIPASE 38 U/L (73-393)
[2023-06-12] MEDS ORDERED: Glucagon,Human Recombinant 1 MG Vial IM PRN ×4 (11:48→16:51)
[2023-06-12] MEDS ORDERED: 50% Dextrose in Water 50 ML Syringe IVPUSH PRN ×4 (11:48→16:51)
[2023-06-12] MEDS ORDERED: Insulin Regular, Human 100 Units/ML 3 ML Vial SUBCUT ONE ×2 (11:48→14:05)
[2023-06-12] MEDS ORDERED: Sodium Chloride 0.9% 500 ML IV SCH (12:00)
[2023-06-12 12:43] LABS: APPEARANCE,URINE SLIGHTLY CLOUDY (CLEAR); BILIRUBIN,URINE NEGATIVE (NEGATIVE); COLOR,URINE YELLOW (YELLOW); GLUCOSE,URINE 500 (NEGATIVE); KETONES,URINE NEGATIVE (NEGATIVE); LEUKOCYTE ESTERASE,URINE LARGE (NEGATIVE); NITRITE,URINE POSITIVE (NEGATIVE); OCCULT BLOOD,URINE TRACE-INTACT (NEGATIVE); PROTEIN,URINE 30 (NEGATIVE); UROBILINOGEN,URINE 0.2 mg/dL (0.2-1.0)
[2023-06-12 12:55] LABS: BACTERIA,URINE FEW /HPF (0-FEW/HPF); EPITHELIAL CELLS,URINE FEW /HPF (NOT SEEN); MUCUS,URINE NOT SEEN /LPF (NOT SEEN); RBC,URINE 0-5 /HPF (0-5); WBC,URINE >100 /HPF (0-5/HPF)
[2023-06-12] MEDS ORDERED: Cefepime 1 GM Vial IVPUSH ONE (13:14)
[2023-06-12] MEDS ORDERED: Bisacodyl 5 MG Tab PO PRN (15:26)
[2023-06-12] MEDS ORDERED: Albuterol 0.083% 2.5 MG/3 ML Neb Soln NEB PRN (15:26)
[2023-06-12] MEDS ORDERED: Promethazine 25 MG Tab PO PRN (15:26)
[2023-06-12] MEDS ORDERED: Ondansetron 4 MG Tab.DIS PO PRN (15:26)
[2023-06-12] MEDS ORDERED: Sodium Chloride 0.9% 1,000 ML IV ONE (16:04)
[2023-06-12] MEDS ORDERED: Non-Formulary Medication 1 Each (Insulin Aspart 100 UNIT/ML Pen) SQ SCH (17:00)
[2023-06-12] MEDS ORDERED: Insulin Glarg,Human.Rec.Analog 100 Unit/ML SUBCUT SCH (17:00)
[2023-06-12] MEDS: Insulin Lispro 100 Units/ML 3 ML Vial SUBCUT SCH ×3 (17:33→21:31)
[2023-06-12] MEDS ORDERED: Cefepime 1 GM Vial IVPUSH SCH (20:00)
[2023-06-12] MEDS: Metoclopramide 10 MG/2 ML SDV IVPUSH SCH (20:00)
[2023-06-12] MEDS ORDERED: Non-Formulary Medication 1 Each (Insulin Detemir 100 UNIT/ML Insuln.Pen) SQ SCH (21:00)
[2023-06-12] MEDS: Insulin Glarg,Human.Rec.Analog 100 Unit/ML SUBCUT SCH (21:30)
[2023-06-13] MEDS ORDERED: Cefepime 1 GM in Sodium Chloride 0.9% 100 ML IV SCH ×2
[2023-06-13] MEDS: Metoclopramide 10 MG/2 ML SDV IVPUSH SCH ×3 (00:08→12:08)
[2023-06-13 06:45] LABS: ANION GAP 10.9 mEq/L (7-13); CALCIUM 8.9 mg/dL (8.5-10.1); CREATININE 3.25 mg/dL (0.55-1.02); EST CRCL DRUG DOSING (CG) 11.46 mL/min; POTASSIUM,K 2.9 mmol/L (3.5-5.1)
[2023-06-13 08:45] LABS: HEMOGLOBIN 10.8 g/dL (12.0-16.0); MEAN CORPUSCULAR HGB CONC 32.7 g/dL (33.0-35.0); MEAN CORPUSCULAR VOLUME 88.7 fL (80-100); RED BLOOD CELL COUNT 3.72 10^6/uL (4.2-5.4); WHITE BLOOD CELL COUNT,WBC 8.7 10^3/uL (5.0-10.0)
[2023-06-13] MEDS ORDERED: Aspirin 81 MG Tab.EC PO SCH (09:00)
[2023-06-13] MEDS: Insulin Glarg,Human.Rec.Analog 100 Unit/ML SUBCUT SCH (09:00)
[2023-06-13] MEDS ORDERED: Fludrocortisone 0.1 MG Tab PO SCH (09:00)
[2023-06-13] MEDS: Insulin Lispro 100 Units/ML 3 ML Vial SUBCUT SCH ×4 (09:01→12:10)
[2023-06-13] MEDS ORDERED: Potassium Chloride 10 MEQ Tab.ER PO ONE (09:14)
[2023-06-13 10:50] LABS: ALBUMIN 3.1 g/dL (3.4-5.0); BUN/CREATININE RATIO 27.7 (No establ ref range); CALCIUM 9.1 mg/dL (8.5-10.1); CREATININE 3.21 mg/dL (0.55-1.02); EST CRCL DRUG DOSING (CG) 11.61 mL/min
[2023-06-13] MEDS ORDERED: Cefepime 1 GM Vial IV SCH (12:00)
[2023-06-13 13:21] LABS: CREATININE,URINE RAND 48.48 mg/dL (No establ ref range); PROTEIN CREATININE RATIO,URINE 773.5 mg/g (<150.0); PROTEIN,URINE RANDOM 37.5 mg/dL (0.0-11.9)
[2023-06-19 06:46] LABS: A/G RATIO 0.8 (0.7-1.7); ALPHA-1-GLOBULIN 0.2 g/dL (0.0-0.4); ALPHA-2-GLOBULIN 0.9 g/dL (0.4-1.0); BETA GLOBULIN 0.9 g/dL (0.7-1.3); GAMMA GLOBULIN 1.7 g/dL (0.4-1.8); GLOBULIN, TOTAL 3.7 g/dL (2.2-3.9); M-SPIKE Not Observed g/dL (Not Observed); PROTEIN, TOTAL 6.7 g/dL (6.0-8.5)
== END 2023-06-13 14:55 | disposition home or self-care (01) | DRG 872 ==
LOC: DL.ED 10:56 → DL.MS 14:33
PROVIDERS: ADMIT Hospitalist; ATTEND Hospitalist
DX: A41.52 Sepsis due to Pseudomonas (principal); N39.0 Urinary tract infection, site not specified; I13.0 Hypertensive heart and chronic kidney disease with heart failure and stage 1 through stage 4 chronic kidney disease, or unspecified chronic kidney disease; N18.4 Chronic kidney disease, stage 4 (severe); E11.43 Type 2 diabetes mellitus with diabetic autonomic (poly)neuropathy; K31.84 Gastroparesis; I50.9 Heart failure, unspecified; E78.00 Pure hypercholesterolemia, unspecified; E11.65 Type 2 diabetes mellitus with hyperglycemia; E11.22 Type 2 diabetes mellitus with diabetic chronic kidney disease; E66.01 Morbid (severe) obesity due to excess calories; I95.9 Hypotension, unspecified; E86.0 Dehydration; I25.10 Atherosclerotic heart disease of native coronary artery without angina pectoris; H50.9 Unspecified strabismus; Z90.49 Acquired absence of other specified parts of digestive tract; Z90.89 Acquired absence of other organs; Z79.82 Long term (current) use of aspirin; I25.2 Old myocardial infarction; Z79.899 Other long term (current) drug therapy; Z79.4 Long term (current) use of insulin; Z68.31 Body mass index [BMI] 31.0-31.9, adult
CPT/HCPCS: 36415; 71045; 81001; 82009; 82947 ×2; 83036; 83605 ×2; 83690; 83880; 84145; 84484; 87040 ×2; 87086; 93005; J0692; J1815; J2405; J7040; 80048; 80069; 82306; 82570; 83970; 84155; 84156; 84165; 84550; 85027; 87088; 87186; 93010; 94010; 96361; 96374; 96375; 97161-GP; 97165-GO; 99223; 99239; 99284; 99285-25; A9270-GY; J2765; J3490; J7030

== ENCOUNTER 2023-06-21 13:00 | Emergency (ER) | payer MEDICARE, BC ==
[2023-06-21] MEDS ORDERED: Potassium Chloride 10% 20 MEQ/15 ML Soln 15 ML UD Cup ONE (14:28)
[2023-06-22] MEDS ORDERED: Potassium Chloride 10% 20 MEQ/15 ML Soln 15 ML UD Cup PO SCH (08:00)
[2023-06-22] MEDS ORDERED: Potassium Chloride 10% 20 MEQ/15 ML Soln 15 ML UD Cup PO ONE (14:23)
== END 2023-06-21 14:35 | disposition home or self-care (01) ==
LOC: DL.ED 13:00
DX: E87.6 Hypokalemia (principal); I13.0 Hypertensive heart and chronic kidney disease with heart failure and stage 1 through stage 4 chronic kidney disease, or unspecified chronic kidney disease; E11.22 Type 2 diabetes mellitus with diabetic chronic kidney disease; N18.9 Chronic kidney disease, unspecified; I50.9 Heart failure, unspecified; I25.10 Atherosclerotic heart disease of native coronary artery without angina pectoris; E78.00 Pure hypercholesterolemia, unspecified; I25.2 Old myocardial infarction; Z79.82 Long term (current) use of aspirin; Z79.899 Other long term (current) drug therapy; Z79.4 Long term (current) use of insulin
CPT/HCPCS: 99281; 99284; A9270